=== PATIENT | female | born 1960 | race Caucasian/White ===

== ENCOUNTER 2016-04-01 18:46 | Emergency (ER) | payer OTHER ==
[2016-04-01 20:10] VITALS: BP 148/77
--- NOTE | 2016-04-01 20:43 | UC ---
Skin Complaint HPI - HPI Summary HPI Summary: pt with skin tag for 5-6 years on her right upper thigh. Notes that tonight it got "bigger" and red and more painful. No fever. States she didn't have insurance before so never had it evaluated by a doctor before - History of Current Complaint Chief Complaint: UCSkin Time Seen by Provider: 04/01/16 20:41 Stated Complaint: SKIN COMPLAINT Hx Obtained From: Patient Onset/Duration: Sudden Onset, Lasting Hours, Still Present Timing: Constant Onset Severity: Moderate Current Severity: Moderate Pain Intensity: 0 Pain Scale Used: 0-10 Numeric Location: Discrete - right upper thigh Character: Swelling, Pain, Redness Aggravating: Touch Alleviating: Nothing Associated Signs & Symptoms: Positive: Tenderness. Negative: Fever, Drainage, Red Streaks - Allergy/Home Medications Allergies/Adverse Reactions: Allergies Allergy/AdvReac Type Severity Reaction Status Date / Time Unable to Obtain Allergy Verified 04/01/16 21:00 Review of Systems Constitutional: Negative Skin: Other - enlarged skin tag on her right upper thigh, red, painful Eyes: Negative ENT: Negative Respiratory: Negative Cardiovascular: Negative Gastrointestinal: Negative Genitourinary: Negative Motor: Negative Neurovascular: Negative Musculoskeletal: Negative Neurological: Negative Psychological: Negative All Other Systems Reviewed And Are Negative: Yes PMH/Surg Hx/FS Hx/Imm Hx Previously Healthy: Yes - Surgical History Surgical History: Yes Surgery Procedure, Year, and Place: B/L EYE SX - Family History Known Family History: Positive: Other - cancer - Social History Occupation: Employed Full-time Alcohol Use: None Substance Use Type: None Smoking Status (MU): Never Smoked Tobacco Physical Exam Triage Information Reviewed: Yes Appearance: Well-Appearing, No Pain Distress, Well-Nourished Vital Signs: Initial Vital Signs Temp 97.6 F 04/01/16 20:04 Pulse 78 04/01/16 20:04 Resp 16 04/01/16 20:04 BP 148/77 04/01/16 20:04 Pulse Ox 97 04/01/16 20:04 Vital Signs Reviewed: Yes Eyes: Positive: Conjunctiva Clear ENT: Positive: Normal ENT inspection Neck exam: Normal Respiratory: Positive: No respiratory distress Cardiovascular: Positive: RRR, Pulses Normal, Brisk Capillary Refill Musculoskeletal: Positive: Strength Intact, ROM Intact Neurological: Positive: Alert, Muscle Tone Normal Psychological Exam: Normal Skin: Positive: significant lesion(s) - right upper medial thigh with 4cm x 3 cm pedunculated lesion, hanging from a stalk. No thigh redness, no red streak. Lesion is red and fluctuant and soft. No "head". No drainage Course/Dx - Differential Diagnoses - Skin Complaint Differential Diagnoses: Abscess, Cellulitis - Diagnoses Provider Diagnoses: skin tag with infection/abscess Discharge - Discharge Plan Condition: Stable Disposition: HOME Prescriptions: Cephalexin CAP* [Keflex 500 CAP*] 500 mg PO QID #37 cap Patient Education Materials: Abscess (ED) Forms: *Work Release Referrals: Stewart Wallace MD [Medical Doctor] - 1 Day No Primary Care Phys,NOPCP [Primary Care Provider] - Additional Instructions: You need to find out what medication you are allergic to. You have stated that you can take penicillin so we have prescribed a medication that is similar to penicillin called cephalexin. You also need to get established with a primary care provider. We have given you a list. Dr. Myrick recommends that you need to see a surgeon for the abscess/growth/ infection on your leg. Call Dr. Wallace office tomorrow and arrange to be seen as soon as possible. If your symptoms are worse, such as but not limited to, increased pain, fever, redness, a red streak, drainage, you need to go directly to the closest emergency room.
[2016-04-01] MEDS ORDERED: Cephalexin CAP* 500 MG PO ONE ×2 (20:51→20:52)
[2016-04-01] MEDS ORDERED: Cephalexin CAP* 500 MG ONE (21:13)
== END 2016-04-01 21:18 | disposition home or self-care (01) ==
LOC: UCCORT 18:46
DX: L91.8 Other hypertrophic disorders of the skin (principal); L02.415 Cutaneous abscess of right lower limb
CPT/HCPCS: 99202; A9270-GY; G0463

== ENCOUNTER 2017-08-11 15:46 | Emergency (ER) | payer OTHER ==
[2017-08-11 16:04] VITALS: BP 130/66
--- NOTE | 2017-08-11 16:05 | UC ---
Skin Complaint HPI - HPI Summary HPI Summary: Patient is 57 year old female , without any significant past medical history who present today with a rash for past few days days that started after taking clindamycin for the dental abscess. She was seen here on 08/09 and treated with solumedrol im and sent home on prednisone 5mg daily . Her rash initially got better after injection and started to come back . Rash is still all over her body , no definite localized lesions. No sick contacts . No exposure to sunlinght Denies any fever, chills, cough chest pain or shortness of breath . Denies any abdominal pain , nausea or vomiting , diarrhea or constipation. Denies any conjunctival redness - History of Current Complaint Time Seen by Provider: 08/11/17 15:58 Stated Complaint: RASH/ALLERGIC REACTION ?? Hx Obtained From: Patient ?: No - post menopausal Onset/Duration: Sudden Onset Skin Exposure Onset/Duration: Days Ago Current Severity: Moderate Location: Diffuse Character: Pruritus Aggravating Factor(s): Nothing Alleviating Factor(s): Nothing Associated Signs & Symptoms: Positive: Negative - Allergy/Home Medications Allergies/Adverse Reactions: Allergies Allergy/AdvReac Type Severity Reaction Status Date / Time clindamycin Allergy Rash Verified 08/11/17 15:58 Review of Systems Constitutional: Negative Skin: Rash Eyes: Negative ENT: Negative Respiratory: Negative Cardiovascular: Negative Gastrointestinal: Negative Genitourinary: Negative Motor: Negative Neurovascular: Negative Musculoskeletal: Negative Neurological: Negative Psychological: Negative Is Patient Immunocompromised?: No All Other Systems Reviewed And Are Negative: Yes PMH/Surg Hx/FS Hx/Imm Hx Previously Healthy: Yes Other Endocrine History: negative Other Cardiovascular History: negative Other Respiratory History: negative Other GI/ History: negative Other Neurological History: negative Other Psychological History: negative Other Cancer History: negative - Surgical History Surgical History: Yes Surgery Procedure, Year, and Place: B/L EYE SX - Family History Known Family History: Positive: Other - cancer - Social History Alcohol Use: None Substance Use Type: None Smoking Status (MU): Never Smoked Tobacco Physical Exam Triage Information Reviewed: Yes Appearance: Well-Appearing, No Pain Distress Vital Signs Reviewed: Yes Eye Exam: Normal Eyes: Positive: Conjunctiva Clear ENT: Positive: Hearing grossly normal. Negative: Nasal congestion, Nasal drainage, Trismus, Muffled voice, Hoarse voice Neck exam: Normal Neck: Positive: Supple Respiratory Exam: Normal Respiratory: Positive: Chest non-tender, Lungs clear, Normal breath sounds, No respiratory distress. Negative: Crackles, Rhonchi, Stridor, Wheezing Cardiovascular Exam: Normal Cardiovascular: Positive: RRR, No Murmur, Pulses Normal Abdominal Exam: Normal Abdomen Description: Positive: Nontender, No Organomegaly, Soft. Negative: Distended, Guarding Bowel Sounds: Positive: Present Musculoskeletal Exam: Normal Musculoskeletal: Positive: Strength Intact, No Edema Neurological Exam: Normal Neurological: Positive: Alert Psychological Exam: Normal Psychological: Positive: Age Appropriate Behavior Skin: Positive: rashes - generalized erythema, hyperemia on trunk and extremities. No localized lesions. no tenderness but blanching Course/Dx - Course Course Of Treatment: During the visit today, we discussed the findings and further plan. I will prescribe the prednisone at a higher dose to the pharmacy . Patient expressed understanding . - Differential Diagnoses - Skin Complaint Differential Diagnoses: Drug Rash - Diagnoses Provider Diagnoses: Drug reaction. Allergic reaction Discharge - Sign-Out/Discharge Documenting (check all that apply): Discharge/Admit/Transfer - Discharge Plan Condition: Stable Disposition: HOME Prescriptions: predniSONE [Prednisone 20 MG TAB] 60 mg PO DAILY 5 Days #15 tablet Patient Education Materials: Antibiotic Medication Allergy (ED) Referrals: Regina Delaney MD [Primary Care Provider] - 2 Days Additional Instructions: Start taking the prednisone . It has been prescribed to the pharmacy . Follow up with your primary care doctor in 2 days. Return to Urgent care / ER if symptoms get worse. - Billing Disposition and Condition Condition: STABLE Disposition: Home
== END 2017-08-11 16:24 | disposition home or self-care (01) ==
LOC: UCCORT 15:46
DX: L27.0 Generalized skin eruption due to drugs and medicaments taken internally (principal); T36.8X5A Adverse effect of other systemic antibiotics, initial encounter; Z88.1 Allergy status to other antibiotic agents
CPT/HCPCS: 99212; G0463

== ENCOUNTER 2019-02-06 07:51 | Emergency (ER) | payer OTHER ==
--- OUTSIDE RECORDS SUMMARY | 2019-02-06 08:09 | XMS REPORT | Continuity of Care Document ---
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 [phone] Problems Active Problems Provider Date Symptom of skin and integumentary tissue Roshan Weller MD,FACS Onset: 04/13 Social History Type Date Description Comments Sex Unknown Tobacco Use Start: Unknown Never Smoked Cigarettes Smokeless Tobacco Never Used Smokeless Tobacco ETOH Use Denies alcohol use Tobacco Use Start: Unknown Patient denies history of smoking Recreational Drug Use Denies Drug Use Smoking Status Reviewed: 01/08/19 Patient denies history of smoking Allergies, Adverse Reactions, Alerts Active Allergies Reaction Severity Comments Date Clindamycin hives 01/08/2019 Inactive Allergies NKDA 04/23/2016 Medications Active Medications SIG Qnty Indications Ordering Provider Date Fish Oil 1 by mouth every Unknown 1000mg Capsules day Atorvastatin Calcium TK 1 T PO hs Unknown 10mg Tablets Immunizations Description No Information Available Vital Signs Date Vital Result Comment 01/08/2019 8:05am BP Systolic Sitting Left Arm 124 mmHg BP Diastolic Sitting Left Arm 73 mmHg Body Temperature 97.7 F Heart Rate 60 /min Height 60 inches 5'0" Weight 177.00 lb BMI (Body Mass Index) 34.6 kg/m2 BSA (Body Surface Area) 1.77 m2 [place] body weight in kilograms 45 kg O2 % BldC Oximetry 98 % 04/23/2016 9:15am BP Systolic 128 mmHg BP Diastolic 80 mmHg Body Temperature 97.0 F Height 60 inches 5'0" Weight 199.00 lb BMI (Body Mass Index) 38.9 kg/m2 BSA (Body Surface Area) 1.86 m2 Results Test Acquired Date Facility Test Result H/L Range Note Xray 01/08/2019 [facility] - Orthopedic RMP, Wrist, LT, < pending> [address] Complete ([address] [place] [address] view) [phone] Procedures Date Code Description Status 01/08/2019 03543 Radiology, Wrist Complete Completed Medical Devices Description No Information Available Encounters Type Date Location Provider Dx Diagnosis Office Visit 01/08/2019 Orthopaedic Office Dagmar Barreto, M25.532 Pain in left 8:00a wrist M67.432 Ganglion, left wrist Assessments Date Code Description Provider 01/08/2019 M25.532 Pain in left wrist Dagmar Barreto MD 01/08/2019 M67.432 Ganglion, left wrist Dagmar Barreto MD Plan of Treatment No Information Available Functional Status Description No Information Available Mental Status Description No Information Available Referrals Description No Information Available
[2019-02-06 08:19] VITALS: BP 144/68
--- NOTE | 2019-03-27 21:37 | UC ---
UC General HPI - HPI Summary HPI Summary: c/o Rash under armpits progressively worse x several days - History of Current Complaint Chief Complaint: UCRash Stated Complaint: SKIN LEFT UNDER ARM Time Seen by Provider: 02/06/19 08:49 Hx Obtained From: Patient Pain Intensity: 0 - Allergy/Home Medications Allergies/Adverse Reactions: Allergies Allergy/AdvReac Type Severity Reaction Status Date / Time clindamycin Allergy Rash Verified 02/06/19 08:16 Home Medications: Home Medications Atorvastatin* [Lipitor*] 10 mg PO BEDTIME 02/06/19 [History Confirmed 02/06/19] Diphenhydramine HCl/Zinc Acet [Anti-Itch] 1 applic TOPICAL QID PRN 02/06/19 [ History Confirmed 02/06/19] Hydrocortisone 1% CREAM* [Hytone Cream 1%*] 1 applic TOPICAL QID PRN 02/06/19 [ History Confirmed 02/06/19] PMH/Surg Hx/FS Hx/Imm Hx Previously Healthy: Yes - Surgical History Surgical History: Yes Surgery Procedure, Year, and Place: B/L EYE SX - Family History Known Family History: Positive: Other - cancer - Social History Alcohol Use: None Substance Use Type: None Smoking Status (MU): Never Smoked Tobacco Review of Systems All Other Systems Reviewed And Are Negative: Yes Constitutional: Positive: Negative Skin: Positive: Other - see hpi Eyes: Positive: Negative ENT: Positive: Negative Respiratory: Positive: Negative Cardiovascular: Positive: Negative Gastrointestinal: Positive: Negative Genitourinary: Positive: Negative Motor: Positive: Negative Neurovascular: Positive: Negative Musculoskeletal: Positive: Negative Neurological: Positive: Negative Psychological: Positive: Negative Is Patient Immunocompromised?: No Physical Exam Triage Information Reviewed: Yes Appearance: Well-Nourished Vital Signs: Initial Vital Signs Temp 97.8 F 02/06/19 08:15 Pulse 63 02/06/19 08:15 Resp 14 02/06/19 08:15 BP 144/68 02/06/19 08:15 Pulse Ox 98 02/06/19 08:15 Vital Signs Reviewed: Yes Eye Exam: Normal - grossly normal ENT Exam: Normal - grossly normal Neck exam: Normal Neck: Positive: Supple Respiratory Exam: Normal Cardiovascular Exam: Normal Abdominal Exam: Normal Abdomen Description: Positive: Nontender Musculoskeletal Exam: Normal Neurological Exam: Normal - grossly normal Psychological Exam: Normal Skin Exam: Other - both axillae + dermatitis + redness + warm to touch. no fluctuance, no sign drainage, but signs of dry mild serous ooze Course/Dx - Course Course Of Treatment: Reviewed coa / tx plan. Questions as posed answered to the best of my ability. - Diagnoses Provider Diagnosis: Dermatitis Discharge ED - Sign-Out/Discharge Documenting (check all that apply): Patient Departure All imaging exams completed and their final reports reviewed: No Studies - Discharge Plan Condition: Stable Disposition: HOME Prescriptions: Clotrimazole/Betamethasone* [Lotrisone Cream*] 1 applic TOPICAL BID #1 tube DOXYcycline CAP(*) [DOXYcycline 100MG CAP(*)] 100 mg PO BID #14 cap Patient Education Materials: Cellulitis (ED) Referrals: Regina Delaney MD [Primary Care Provider] - Additional Instructions: Follow up with your doctor per routine. But do seek medical attention sooner if worse or new problems, or if your symptoms have not improved by Saturday. Avoid deodorant / shaving to Left armpit until the redness is gone. Cotton and / or loose clothing. Mild white soap with shower. - Billing Disposition and Condition Condition: STABLE Disposition: Home
== END 2019-02-06 09:07 | disposition home or self-care (01) ==
LOC: UCCORT 07:51
DX: L30.9 Dermatitis, unspecified (principal); Z88.1 Allergy status to other antibiotic agents
CPT/HCPCS: 99212; G0463